=== PATIENT | female | born 1965 | race Asian ===

== ENCOUNTER 2017-01-21 14:43 | Outpatient (CLI) | payer OTHER ==
[2017-01-21] MEDS ORDERED: IOPAMIDOL-300 100 ML VIAL IVP ONE (16:00)
[2017-01-21] MEDS ORDERED: IOPAMIDOL-300 50 ML VIAL PO ONE (16:00)
== END 2017-01-21 14:44 | disposition home or self-care (01) ==
DX: E27.9 Disorder of adrenal gland, unspecified (principal); R10.9 Unspecified abdominal pain
CPT/HCPCS: 74177; Q9967

== ENCOUNTER 2017-01-29 11:42 | Outpatient (CLI) | payer OTHER ==
[2017-01-29] MEDS ORDERED: IOPAMIDOL-300 50 ML VIAL PO ONE (12:59)
[2017-01-29] MEDS ORDERED: IOPAMIDOL-300 100 ML VIAL IVP ONE (12:59)
== END 2017-01-29 11:43 | disposition home or self-care (01) ==
DX: E27.9 Disorder of adrenal gland, unspecified (principal); R93.5 Abnormal findings on diagnostic imaging of other abdominal regions, including retroperitoneum
CPT/HCPCS: 74170; Q9967